=== PATIENT | female | born 1950 | race Hispanic/Latino ===

== ENCOUNTER 2020-06-24 15:13 | Outpatient (CLI) | payer MEDICARE, BC ==
[2020-06-24 15:51] LABS: Basophils % (Auto) 0.4 % (0.0-1.8); Eosinophils # (Auto) 0.2 K/mm3 (0.0-0.4); Eosinophils % (Auto) 1.9 % (0.0-4.3); Hematocrit 38.5 % (30.3-42.9); Hemoglobin 13.3 gm/dl (10.1-14.3); Lymphocytes # (Auto) 2.2 K/mm3 (1.2-5.4); Lymphocytes % (Auto) 27.1 % (13.4-35.0); Mean Corpuscular HGB Conc 35 % (30-34); Mean Corpuscular Volume 81 fl (79-97); Monocytes # (Auto) 0.8 K/mm3 (0.0-0.8); Monocytes % (Auto) 10.3 % (0.0-7.3); Platelet Count 259 K/mm3 (140-440); Red Blood Count 4.78 M/mm3 (3.65-5.03); Red Cell Distribution Width 13.8 % (13.2-15.2)
[2020-06-24 16:17] LABS: Alanine Aminotransferase 41 units/L (7-56); Albumin 3.8 g/dL (3.9-5); Blood Urea Nitrogen 18 mg/dL (7-17); Chol/HDL Ratio 3.58 %; HDL Cholesterol 34 mg/dL (40-59); Hemolysis Index 7; Iron 106 ug/dL (37-170); LDL Cholesterol,Direct 77 mg/dL (50-130); Total Iron Binding Capacity 292 mcg/dL (250-450)
[2020-06-24 16:19] LABS: BUN/Creatinine Ratio 26
== END 2020-06-24 15:14 | disposition home or self-care (01) ==
LOC: LAB 15:13
PROVIDERS: ATTEND Surgery
DX: E55.9 Vitamin D deficiency, unspecified (principal); E11.9 Type 2 diabetes mellitus without complications; K90.9 Intestinal malabsorption, unspecified; E66.01 Morbid (severe) obesity due to excess calories; K30 Functional dyspepsia
CPT/HCPCS: 36415; 80053; 80061; 82607; 82652; 82728; 83036; 83550; 84443; 85025; 85730

== ENCOUNTER 2020-09-30 10:27 | Outpatient (CLI) | payer MEDICARE ==
--- NOTE | 2020-09-30 11:46 | Fluoroscopy Report ---
Barium swallow Indication: MORBID OBESITY. Technique: Single and double contrast barium technique utilized to evaluate the esophagus. Findings: No mucosal irregularity, mass, mass effect, or critical stenosis. There were no abnormal tertiary c ontractions as seen with dysmotility. There was trace gastroesophageal reflux reaching the distal eso phagus. Impression: Trace gastroesophageal reflux. Otherwise unremarkable exam. Fluoroscopic time: 0.4 minutes Number of fluoroscopic images: 10 Signer Name: Dominick Carias MD Signed: 09/30/2020 11:41 AM Workstation Name: [id number]
== END 2020-09-30 10:28 | disposition home or self-care (01) ==
LOC: FLUORO 10:27
PROVIDERS: ATTEND Surgery
DX: E66.01 Morbid (severe) obesity due to excess calories (principal)
CPT/HCPCS: 74220

== ENCOUNTER 2020-11-01 08:00 | Inpatient (IN) | payer MEDICARE ==
[2020-11-05 10:27] LABS: Hematocrit 42.6 % (30.3-42.9); Hemoglobin 14.3 gm/dl (10.1-14.3); Mean Corpuscular HGB Conc 33 % (30-34); Mean Corpuscular Volume 82 fl (79-97); Platelet Count 268 K/mm3 (140-440); Red Blood Count 5.18 M/mm3 (3.65-5.03); Red Cell Distribution Width 13.9 % (13.2-15.2)
[2020-11-05 10:46] LABS: Alanine Aminotransferase 41 units/L (7-56); Blood Urea Nitrogen 19 mg/dL (7-17); Calcium 9.4 mg/dL (8.4-10.2); Hemolysis Index 0
[2020-11-05 10:47] LABS: BUN/Creatinine Ratio 27
--- NOTE | 2020-11-05 11:59 | Anesthesia Consultation ---
Anesthesia Consult and Med Hx Date of service: 11/08/20 - Airway Anesthetic Teeth Evaluation: Good ROM Head & Neck: Adequate Mental/Hyoid Distance: Adequate Mallampati Class: Class I Intubation Access Assessment: Good - Pulmonary Exam CTA: Yes - Cardiac Exam Cardiac Exam: RRR - Pre-Operative Health Status ASA Pre-Surgery Classification: ASA3 Proposed Anesthetic Plan: General - Pulmonary Hx Smoking: Yes (former smoker quit 25yrs) Hx Respiratory Symptoms: No (pulmonary fibrosis, no inhalers; pulm eval on chart) Home Oxygen Therapy: No Hx Sleep Apnea: Yes (occasional CPAP) - Cardiovascular System Hx Hypertension: Yes Hx Coronary Artery Disease: Yes (recent normal EF negative stress test) Hx Heart Attack/AMI: Yes (2005) Hx Percutaneous Transluminal Coronary Angioplasty (PTCA): Yes (stent x1 2005; ASA held >1 week) Hx Cardia Arrhythmia: No - Central Nervous System Hx Neuromuscular Disorder: No (RLS, peripheral neuropathy) CVA: No - Gastrointestinal Hx Gastroesophageal Reflux Disease: Yes - Endocrine Hx Renal Disease: No Hx Liver Disease: No Hx Insulin Dependent Diabetes: No Hx Non-Insulin Dependent Diabetes: No Hx Thyroid Disease: No - Other Systems Hx Obesity: Yes (BMI 40) - Additional Comments Anesthesia Medical History Comments: No hx anesthetic complications.
[2020-11-08] MEDS ORDERED: ENOXAPARIN 40 MG/0.4 ML INJ SUB-Q NR ×2 (06:00→09:00)
[2020-11-08] MEDS ORDERED: SCOPOLAMINE TRANSDERMAL PATCH 72 HR TD NR (06:00)
[2020-11-08] MEDS ORDERED: GABAPENTIN 500 MG/10 ML ORAL LIQD PO NR (06:00)
[2020-11-08] MEDS ORDERED: MIDAZOLAM 2 MG/2 ML INJ IV NR (06:00)
[2020-11-08] MEDS ORDERED: metroNIDAZOLE/NS 500 MG/100 ML 500 MG/100 ML BAG IV NR (06:00)
[2020-11-08] MEDS ORDERED: LACTATED RINGERS 1,000 ML IV SCH ×2 (06:00→12:30)
[2020-11-08] MEDS ORDERED: ACETAMINOPHEN IV 1,000 MG/100 ML BOTTLE IV ONE (06:12)
[2020-11-08] MEDS ORDERED: SCOPOLAMINE TRANSDERMAL PATCH 72 HR TD ONE (06:12)
[2020-11-08] MEDS ORDERED: BUPIVACAINE/PF (0.25%) 2.5 MG/ML 30 ML VIAL INFILTRATI ONE ×2 (07:18→08:53)
[2020-11-08] MEDS ORDERED: LIDOCAINE 1%/EPINEPHRINE 1:100,000 VIAL (20 ML) INFILTRATI ONE ×2 (07:19→08:54)
--- NOTE | 2020-11-08 07:25 | Anesthesia Day of Surgery ---
Anesthesia Day of Surgery - Day of Surgery Patient Examined: Yes Patient H&P Reviewed: Yes Patient is NPO: Yes Beta Blockers: Yes (metoprolol)
[2020-11-08] MEDS ORDERED: LIDOCAINE MPF (2%) 20 MG/1 ML VIAL 5 ML ONE (07:32)
[2020-11-08] MEDS ORDERED: ROCURONIUM 50 MG/5 ML INJ IV ONE (07:32)
[2020-11-08] MEDS ORDERED: KETAMINE/STERILE WATER 50 MG/ML SYRINGE ONE (07:32)
[2020-11-08] MEDS ORDERED: SODIUM CHLORIDE P/F VIAL 10 ML 10 ML ONE (07:34)
[2020-11-08] MEDS: ACETAMINOPHEN IV 1,000 MG/100 ML BOTTLE IV NR ×3 (07:35→20:55)
[2020-11-08] MEDS ORDERED: MAGNESIUM SULFATE 4 GM/100 ML BAG IV ONE (07:43)
[2020-11-08] MEDS ORDERED: ceFAZolin/Water 2 GM/20 ML 2 GM/20 ML SYRINGE IV ONE (07:52)
[2020-11-08] MEDS ORDERED: ONDANSETRON 4 MG/2 ML INJ IV PRN ×2 (08:00→13:00)
[2020-11-08] MEDS ORDERED: fentaNYL 100 MCG/2 ML INJ IV PRN (08:00)
[2020-11-08] MEDS ORDERED: ceFAZolin/STERILE WATER 2 GM/20 ML SYRINGE IV NR (08:00)
[2020-11-08] MEDS ORDERED: ePHEDrine SULFATE 50 MG/1 ML INJ ONE (08:51)
[2020-11-08] MEDS ORDERED: ENOXAPARIN 40 MG/0.4 ML INJ SUB-Q ONE (08:52)
[2020-11-08] MEDS ORDERED: SODIUM CHLORIDE 0.9% IRRIG SOLN 2000 ML IR ONE (08:54)
[2020-11-08] MEDS ORDERED: SODIUM CHLORIDE 0.9% IRR 1,500 ML BOTTLE IR ONE (08:55)
[2020-11-08] MEDS ORDERED: GLYCOPYRROLATE 0.4 MG/2 ML INJ ONE (11:00)
[2020-11-08] MEDS ORDERED: NEOSTIGMINE 10MG/10 ML INJ MDV ONE (11:00)
[2020-11-08] MEDS ORDERED: NON-FORMULARY EACH (Clonidine Hcl [Kapvay] 0.1 MG Tab.Er.12h) PO PRN (11:42)
--- NOTE | 2020-11-08 11:50 | Operative Report ---
Operative Report Operative Report: DATE OF PROCEDURE: 11/08/2020 SURGEON: Yuni Yu MD [employer] DEVELOPER: Yandy Antonio CSA, MD PREOPERATIVE DIAGNOSIS: Morbid obesity. POSTOPERATIVE DIAGNOSES: Morbid obesity PROCEDURES PERFORMED: 1. Laparoscopic gastric bypass. 2. Hiatal hernia repair 3. EGD. ANESTHESIA: General endotracheal tube intubation, TAP block SPECIMENS: None. ESTIMATED BLOOD LOSS: ~20ml FINDINGS: Normal anatomy. COMPLICATIONS: None. INDICATION: Ms. Gao is a 69-year-old female with history of morbid obesity, and obesity related co-morbidities. She presented today for gastric bypass. She signed informed consent and expressed understanding of risks and benefits. DESCRIPTION OF PROCEDURE: Patient was brought to the OR suite, laid in supine position. Bilateral lower extremity SCDs were placed. General anesthesia was induced via successful endotracheal tube intubation. Patient's abdomen was prepped and draped in sterile fashion. A veress needle was used to insuflate the abdomen to a pressure of 15mmHg via a stab incision in the left subcostal area Using Optiview technique, a 5-mm trocar was placed into the abdominal cavity under direct vision just superior to the umbilicus. There was noted to be no gross injury to any intraabdominal structures. 4 working trocars were placed under direct visualization, 12 mm in the right mid abdomen mid clavicular line and three 5-mm trocars in the right upper quadrant, epigastric, left upper quadrant. At this time, the ligament of Treitz identified and followed down approximately 60 cm and the jejunum was transected, after the omentum was split with the Harmonic scalpel . The distal segment of jejunum was then traced for approximately 80 cm and a stapled [id number] jejunojejunostomy was performed. The common enterotomy was closed with 2 firings of the endoscopic stapler. The mesenteric defect was closed with interrupted surgiac suture. This anastomosis was found to be patent without kink, obstruction or bleeding. At this time, the patient was placed in steep reverse Trendelenburg position. A liver retractor was placed through the epigastric port to elevate the left lateral lobe of the liver. A small gastric pouch was formed measuring about 4cm from the hiatus with serial firings of the blue staple load. There was noted to be a hiatal hernia defect through which the proximal gastric pouch was herniating above the level of the diaphragm. The left and right crura were skeletonized, and the sac attachments released until the gastric pouch rested in the abdominal cavity without tension for about 2cm. An anterior cruraplasty was performed with a U-stitch using surgidac suture. The Sabi limb was then brought in an antegastric antecolic fashion and secured with 2 stay sutures to the gastric pouch. After this, the enterotomies were made with Harmonic scalpel, and a [id number] stapled gastrojejunostomy was performed with a mechanical stapler. With a common anastamosis measuring about 20mm. After this, a 2-layer running closure using absorbable v-loc suture was done. The first being mucosal approximation. Prior to completion of the first layer, I passed an EGD scope beyond the anastomosis to act as a stent. The first layer was completed, the second was then performed. After this, the EGD was retracted slightly. A bowel clamp was placed on the proximal Sabi limb. The anastomosis was submerged under saline. Via intraluminal EGD insufflation, there was noted be no bubbles in the saline indicating an air tight anastomosis. There was noted to be no obstruction or bleeding intraluminally in the pouch or the anastomosis. At this time, the scope was removed. The saline was aspirated. Vistaseal was placed over the anastomosis. A TAP block using a total of 60ml 0.25% marcaine along bilateral midaxially lines from the subcostal margin to about the level of the umbilicus. All trocars were removed under direct visualization and the abdomen was then desufflated. The 12mm trocar was closed at the fascial layer with #1 PDS using a suture passer device prior to desfulation. The skin incisions were closed with 4-0 Monocryl followed by Dermabond dressings. Patient was awoken and taken to recovery in stable condition. All counts were correct.
--- OUTSIDE RECORDS SUMMARY | 2020-11-08 11:58 | External Medical Summary ---
:1950 Author Organization [facility], [facility] Address [address] [place] [address] Care Team Providers Name Role Phone Yuni Yu Unavailable [phone] PROBLEMS Type Condition ICD9-CM OIA87-AR Onset Condition W/U Status Risk SNOM ED Notes Code Code Dates Status Code Problem Dietary Z71.3 Active confirmed 126250652 counseling and surveillance Problem Unspecified J45.909 Active confirmed 0301300 0 asthma, uncomplicated Problem Gastro-esopha K21.9 Active confirmed 964387 005 geal reflux disease without esophagitis Problem Pulmonary J84.10 Active confirmed 48139127 fibrosis, unspecified Problem Sleep apnea, G47.30 Active confirmed 5947422 6 unspecified Problem Hyperlipidemi E78.5 Active confirmed 240397 04 a, unspecified Problem Morbid E66.01 Active confirmed 473889618 (severe) obesity due to excess calories Problem Essential I10 Active confirmed 05831296 (primary) hypertension ALLERGIES Allergen (clinical drug Drug/Non Drug Allergy Reaction Allergy Type Onset Date Status ingredient) documented on EMR Pollen Pollen Unknown Drug Allergy Active Bee Sting Unknown Drug Allergy Active copper Copper Unknown Drug Allergy Active Dust Mites Unknown Drug Allergy Active ENCOUNTERS from 1950 to 2020-11-08 Encounter Location Date Provider Diagnosis [facility] [address] [facility] [place], [place]hav[place] [address] IMMUNIZATIONS No Information SOCIAL HISTORY Sex Assigned At : Social History Observation Description Sex Assigned At Unknown REASON FOR REFERRAL from 1950 to 2020-11-08 Diagnosis 1 Morbid (severe) obesity due to excess calories (E66.01) Diagnosis 2 Hyperlipidemia, unspecified (E78.5) Diagnosis 3 Sleep apnea, unspecified (G4 7.30) Diagnosis 4 Unspecified asthma, uncompli cated (J45.909) Diagnosis 5 Gastro-esophageal reflux dis ease without esophagitis (K21.9) Diagnosis 6 Essential (primary) hyperten timothy (I10) Diagnosis 7 Dietary counseling and surve illance (Z71.3) Diagnosis 8 Pain in unspecified knee (M2 5.569) Diagnosis 9 Low back pain (M54.5) Referral Organization [facility] Referring Provider First Name Yuni Referring Provider Last Name Gigi Referring Provider Specialty Surgery Referred Provider [facility], - Referral Priority Routine VITAL SIGNS No information MEDICATIONS Medication SIG (Take, Route, Notes Start Date End Date Status Frequency, Duration) Hydrochlorothiazide-25 1 tablet in the Active mg 25 MG morning Orally Once a day for 30 day(s) Loratadine Active Atorvastatin Calcium 40 1 tablet Orally Once Active MG a day for 30 day(s) Flonase Active Alendronate Sodium 70 MG 1 tablet 30 minutes 1 weekly Active before the first food, beverage or medicine of the day with plain water Orally for 30 day(s) Aspir-81 Active Losartan Potassium 100 1 tablet Orally Once Active MG a day for 30 day(s) Ondansetron 4 MG 1-2 tablet on the Oct, Active tongue and allow to dissolve Orally q 4-6 hours prn nausea for 30 day(s) Potassium 10 meq prn Active Furosemide 40 MG 1 tablet Orally Once Active a day for 30 day(s) cloNIDine HCl 0.1 MG 1 tablet Orally Once prn Active a day for 30 day(s) Isosorbide Mononitrate 1 tablet in the Active ER 30 MG morning Orally Once a day for 30 day(s) NexIUM 40 MG 1 capsule Orally Once Oct, Active a day for 30 day(s) Pantoprazole Sodium 40 1 tablet Orally Once Active MG a day for 30 day(s) PROCEDURES No Information RESULTS No Results REASON FOR VISIT Gastric Bypass MEDICAL (GENERAL) HISTORY Type Description Date Medical History htn Medical History gerd Medical History hypercholerolemia Medical History bronchitis Medical History pulmonary fibrosis Medical History back pain Medical History sleep apnea Medical History irritable bowel syndrome Medical History hiatal hernia Medical History asthma Surgical History tubal ligation 1978 Surgical History lap wayne 2002 Surgical History L knee arthoscopic knee surgery 2003 Surgical History aortic stent 2006 Surgical History kidney stone ablation 2009 Surgical History L total knee replacement 2011 Hospitalization History as above Goals Section No Information Health Concerns No Information MEDICAL EQUIPMENT No Information MENTAL STATUS No Information FUNCTIONAL STATUS No Information ASSESSMENTS No Information PLAN OF TREATMENT Medication Medication Name Sig Start Date Stop Date NexIUM 40 MG 1 capsule Orally Once a day for 30 day(s) Oct Ondansetron 4 MG 1-2 tablet on the tongue and allow to Oct, 021 dissolve Orally q 4-6 hours prn nausea for 30 day(s) Referrals Referral Date Details Insurance Providers Payer Name Payer Address Payer Insured Patient Coverage Cover age End Phone Name Relationship to Start Date Law e Insured Medicare [address] [phone] [facility] [address] [id number] [facility] [phone] Agustín Gao self [facility] [phone] [id number]
[2020-11-08] MEDS ORDERED: ENOXAPARIN 40 MG/0.4 ML INJ SUB-Q SCH (12:00)
[2020-11-08] MEDS ORDERED: MORPHINE 2 MG/1 ML INJ IV PRN (12:30)
[2020-11-08] MEDS ORDERED: SIMETHICONE 80 MG CHEW TAB PO PRN (12:30)
[2020-11-08] MEDS ORDERED: METOCLOPRAMIDE 10 MG/2 ML INJ IV PRN (12:30)
[2020-11-08] MEDS ORDERED: KETOROLAC 30 MG/1 ML INJ ONE (12:33)
[2020-11-08] MEDS: KETOROLAC 30 MG/1 ML INJ IV SCH ×2 (12:40→20:54)
[2020-11-08] MEDS: PANTOPRAZOLE 40 MG INJ IV SCH (12:45)
[2020-11-08] MEDS ORDERED: HYDROcodone/Acetaminophen 7.5-325MG-15ML ORAL LIQD PO PRN (13:00)
[2020-11-08] MEDS ORDERED: hydrALAZINE 20 MG/1 ML INJ IV PRN (13:00)
[2020-11-08] MEDS ORDERED: HYDROmorphone 1 MG/1 ML INJ IV PRN (13:00)
[2020-11-08] MEDS ORDERED: cloNIDine 0.1 MG TAB PO PRN (14:00)
--- NOTE | 2020-11-08 15:03 | Post Anesthesia Evaluation ---
- Post Anesthesia Evaluation Patient Participated: Yes Airway Patent: Yes Stable Respiratory Function: Yes Nausea/Vomiting: No Temp > 96.8F: Yes Pain Manageable: Yes Adequeate Hydration: Yes Anesthesia Complications: No
[2020-11-08] MEDS: metroNIDAZOLE/NS 500 MG/100 ML 500 MG/100 ML BAG IV SCH ×2 (16:08→22:02)
[2020-11-08] MEDS: ceFAZolin/NS 1 GM/50 ML 1 GM/50 ML BAG IV SCH (16:09)
[2020-11-08] MEDS: ACETAMINOPHEN IV 1,000 MG/100 ML BOTTLE IV SCH ×2 (20:23→21:17)
[2020-11-09] MEDS: ceFAZolin/NS 1 GM/50 ML 1 GM/50 ML BAG IV SCH (00:11)
[2020-11-09] MEDS: KETOROLAC 30 MG/1 ML INJ IV SCH ×4 (00:16→19:13)
[2020-11-09] MEDS: ACETAMINOPHEN IV 1,000 MG/100 ML BOTTLE IV SCH ×2 (01:10→12:58)
[2020-11-09 06:16] LABS: Basophils % (Auto) 0.1 % (0.0-1.8); Hematocrit 37.2 % (30.3-42.9); Hemoglobin 12.5 gm/dl (10.1-14.3); Lymphocytes # (Auto) 0.8 K/mm3 (1.2-5.4); Lymphocytes % (Auto) 6.4 % (13.4-35.0); Mean Corpuscular HGB Conc 34 % (30-34); Mean Corpuscular Volume 83 fl (79-97); Monocytes # (Auto) 0.9 K/mm3 (0.0-0.8); Monocytes % (Auto) 7.3 % (0.0-7.3); Platelet Count 235 K/mm3 (140-440)
[2020-11-09] MEDS: metroNIDAZOLE/NS 500 MG/100 ML 500 MG/100 ML BAG IV SCH (06:29)
[2020-11-09 06:37] LABS: Alanine Aminotransferase 37 units/L (7-56); Albumin 3.6 g/dL (3.9-5); Blood Urea Nitrogen 11 mg/dL (7-17); Calcium 8.5 mg/dL (8.4-10.2); Hemolysis Index 0
[2020-11-09 06:39] LABS: BUN/Creatinine Ratio 16
--- NOTE | 2020-11-09 09:54 | Progress Note ---
Assessment and Plan Postop day #1 status post laparoscopic gastric bypass with hiatal hernia repair. Patient is afebrile and stable. Patient was started clear liquids today. Will like to serve patient for another day due to her significant comorbidities in cluding coronary artery disease, interstitial lung disease. We will continue frequent ambulation and incentive spirometry. If patient continues to do well will discharge tomorrow. Subjective Date of service: 11/09/20 Narrative: No acute events overnight. Patient complaining of some abdominal cramping otherwise pain is well controlled. Patient is ambulating well. Objective Vital Signs - 12hr 11/08/20 11/08/20 11/09/20 23:11 23:50 02:19 Temperature 98.8 F Pulse Rate 87 Respiratory 16 Rate Blood Pressure 115/55 O2 Sat by Pulse 76 L 85 92 Oximetry 11/09/20 11/09/20 11/09/20 03:16 09:27 09:29 Temperature 98.8 F 97.6 F Pulse Rate 92 H 75 Respiratory 18 18 Rate Blood Pressure 127/56 138/56 138/56 O2 Sat by Pulse 90 83 L Oximetry 11/09/20 09:41 Temperature Pulse Rate Respiratory Rate Blood Pressure O2 Sat by Pulse 91 Oximetry - General physical appearance well developed, no distress, no pain - Respiratory normal expansion, normal respiratory effort - Abdomen soft, other (Abdominal binder in place with incisions clean dry and intact. Appropriately tender to palpation.) - Labs 11/09/20 04:53 11/09/20 04:53 Diabetes panel 11/09/20 Range/Units 04:53 Sodium 141 (137-145) mmol/L Potassium 4.4 (3.6-5.0) mmol/L Chloride 105.1 (98-107) mmol/L Carbon Dioxide 24 (22-30) mmol/L BUN 11 (7-17) mg/dL Creatinine 0.7 (0.6-1.2) mg/dL Glucose 113 H (65-100) mg/dL Calcium 8.5 (8.4-10.2) mg/dL AST 36 (5-40) units/L ALT 37 (7-56) units/L Alkaline Phosphatase 68 (35-129) units/L Total Protein 6.9 (6.3-8.2) g/dL Albumin 3.6 L (3.9-5) g/dL Calcium panel 11/09/20 Range/Units 04:53 Calcium 8.5 (8.4-10.2) mg/dL Albumin 3.6 L (3.9-5) g/dL Pituitary panel 11/09/20 Range/Units 04:53 Sodium 141 (137-145) mmol/L Potassium 4.4 (3.6-5.0) mmol/L Chloride 105.1 (98-107) mmol/L Carbon Dioxide 24 (22-30) mmol/L BUN 11 (7-17) mg/dL Creatinine 0.7 (0.6-1.2) mg/dL Glucose 113 H (65-100) mg/dL Calcium 8.5 (8.4-10.2) mg/dL Adrenal panel 11/09/20 Range/Units 04:53 Sodium 141 (137-145) mmol/L Potassium 4.4 (3.6-5.0) mmol/L Chloride 105.1 (98-107) mmol/L Carbon Dioxide 24 (22-30) mmol/L BUN 11 (7-17) mg/dL Creatinine 0.7 (0.6-1.2) mg/dL Glucose 113 H (65-100) mg/dL Calcium 8.5 (8.4-10.2) mg/dL Total Bilirubin 0.80 (0.1-1.2) mg/dL AST 36 (5-40) units/L ALT 37 (7-56) units/L Alkaline Phosphatase 68 (35-129) units/L Total Protein 6.9 (6.3-8.2) g/dL Albumin 3.6 L (3.9-5) g/dL
[2020-11-09] MEDS ORDERED: NON-FORMULARY EACH (Losartan [Cozaar] 100 MG Tablet) PO SCH (10:00)
[2020-11-09] MEDS ORDERED: METOPROLOL TARTRATE 50 MG TAB PO SCH (10:00)
[2020-11-09] MEDS ORDERED: SCOPOLAMINE TRANSDERMAL PATCH 72 HR TD SCH (10:00)
[2020-11-09] MEDS: PANTOPRAZOLE 40 MG INJ IV SCH (12:23)
[2020-11-09] MEDS: ENOXAPARIN 40 MG/0.4 ML INJ SUB-Q SCH (12:23)
[2020-11-09] MEDS: METOPROLOL SUCCINATE XL 50 MG TAB PO SCH (12:29)
[2020-11-09] MEDS: LOSARTAN 50 MG TAB PO SCH (12:30)
[2020-11-09] MEDS: hydroCHLOROthiazide 25 MG TAB PO SCH (12:31)
[2020-11-10] MEDS: KETOROLAC 30 MG/1 ML INJ IV SCH ×2 (02:22→06:51)
[2020-11-10 06:13] LABS: Basophils % (Auto) 0.4 % (0.0-1.8); Eosinophils # (Auto) 0.2 K/mm3 (0.0-0.4); Eosinophils % (Auto) 1.8 % (0.0-4.3); Hematocrit 35.1 % (30.3-42.9); Hemoglobin 11.7 gm/dl (10.1-14.3); Lymphocytes # (Auto) 1.7 K/mm3 (1.2-5.4); Mean Corpuscular HGB Conc 33 % (30-34); Mean Corpuscular Volume 82 fl (79-97); Monocytes # (Auto) 0.8 K/mm3 (0.0-0.8); Platelet Count 214 K/mm3 (140-440); Red Blood Count 4.27 M/mm3 (3.65-5.03)
[2020-11-10 06:35] LABS: Alanine Aminotransferase 24 units/L (7-56); Albumin 3.3 g/dL (3.9-5); Blood Urea Nitrogen 12 mg/dL (7-17); Calcium 8.6 mg/dL (8.4-10.2); Hemolysis Index 2
[2020-11-10 06:40] LABS: BUN/Creatinine Ratio 17
[2020-11-10 08:06] VITALS: BP 110/42
[2020-11-10] MEDS: METOPROLOL SUCCINATE XL 50 MG TAB PO SCH (09:09)
[2020-11-10] MEDS: ENOXAPARIN 40 MG/0.4 ML INJ SUB-Q SCH (09:10)
[2020-11-10] MEDS: LOSARTAN 50 MG TAB PO SCH (09:10)
[2020-11-10] MEDS: hydroCHLOROthiazide 25 MG TAB PO SCH (09:10)
[2020-11-10] MEDS: PANTOPRAZOLE 40 MG INJ IV SCH (09:10)
--- NOTE | 2020-11-10 10:17 | Discharge Summary ---
Providers - Providers Date of Admission: 11/08/20 05:55 Date of discharge: 11/10/20 Attending physician: BRAYAN OROZCO MD 11/08/20 11:37 Physical Therapy Evaluation and Treat [CONS] Routine Comment: Reason For Exam: post op bariatric surgery Primary care physician: SARAH GARVEY MD Hospitalization Reason for admission: s/p bariatric surgery Condition: Good Procedures: lap gastric bypass with hiatal hernia repair Hospital course: Patient had an uncomplicated course status post laparoscopic gastric bypass with hiatal hernia. Patient progressed well with adequate pain control. She was ambulating well with complaint of difficulty getting in and out of the bed which caused her some abdominal discomfort. Patient denied any nausea or vomiting. Patient was tolerating clear liquids without difficulty. Patient's laboratory and vital signs were within appropriate limits. Patient was discharged on postoperative day 2 showing no clinical signs of leak or bleeding. Disposition: 01 HOME / SELF CARE / HOMELESS Final Discharge Diagnosis (Prints w/discharge instructions): morbid obesity, pulmonary fibrosis, MIRANDA, htn, hyperlipidemia, heart disease Core Measure Documentation - Palliative Care Palliative Care/ Comfort Measures: Not Applicable - Core Measures Any of the following diagnoses?: none Exam - Constitutional Vitals: Temp Pulse Resp BP Pulse Ox 98.1 F 78 18 110/42 91 11/10/20 08:00 11/10/20 09:09 11/10/20 08:00 11/10/20 08:00 11/10/20 08:00 General appearance: Present: no acute distress, obese - Respiratory Respiratory effort: normal - Cardiovascular Heart Sounds: Present: S1 & S2 - Extremities Extremities: no ischemia - Abdominal General gastrointestinal: Present: other (incisions c/d/i, appropriately tender to palpation) Plan Activity: advance as tolerated Diet: clear liquids Wound: open to air, keep clean and dry Follow up with: SARAH GARVEY MD [Primary Care Provider] - 7 Days
== END 2020-11-10 14:06 | disposition home or self-care (01) | DRG 621 ==
LOC: EDSTATUS 08:00 → 3A 11-08 05:55 → 4A 11-08 11:46
PROVIDERS: ADMIT Surgery; ATTEND Surgery
PROC: 0D164ZA Bypass Stomach to Jejunum, Percutaneous Endoscopic Approach (ICD-10-PCS; principal; 2020-11-08)
PROC: 0BQT4ZZ Repair Diaphragm, Percutaneous Endoscopic Approach (ICD-10-PCS; 2020-11-08)
PROC: 0DJ08ZZ Inspection of Upper Intestinal Tract, Via Natural or Artificial Opening Endoscopic (ICD-10-PCS; 2020-11-08)
DX: E66.01 Morbid (severe) obesity due to excess calories (principal); Z20.822 Contact with and (suspected) exposure to COVID-19; Z68.41 Body mass index [BMI] 40.0-44.9, adult; Z91.048 Other nonmedicinal substance allergy status; G47.33 Obstructive sleep apnea (adult) (pediatric); J84.10 Pulmonary fibrosis, unspecified; E78.5 Hyperlipidemia, unspecified; I11.9 Hypertensive heart disease without heart failure; K44.9 Diaphragmatic hernia without obstruction or gangrene
CPT/HCPCS: 36415; 80053; 85025; 85027; 94660; 94760; G0378; A4217; C9113; J0131; J0690; J1650; J1885; J2405; J2704; J2710; J3475; J3490; J7120; U0003

== ENCOUNTER 2021-08-23 13:54 | Outpatient (CLI) | payer MEDICARE, BC ==
[2021-08-23 14:36] LABS: Basophils # (Auto) 0.1 K/mm3 (0.0-0.1); Basophils % (Auto) 1.2 % (0.0-1.8); Eosinophils # (Auto) 0.3 K/mm3 (0.0-0.4); Eosinophils % (Auto) 5.6 % (0.0-4.3); Hematocrit 34.4 % (30.3-42.9); Hemoglobin 11.3 gm/dl (10.1-14.3); Lymphocytes # (Auto) 1.7 K/mm3 (1.2-5.4); Lymphocytes % (Auto) 29.3 % (13.4-35.0); Mean Corpuscular HGB Conc 33 % (30-34); Mean Corpuscular Volume 82 fl (79-97); Monocytes # (Auto) 0.4 K/mm3 (0.0-0.8); Monocytes % (Auto) 6.8 % (0.0-7.3); Platelet Count 201 K/mm3 (140-440); Red Blood Count 4.18 M/mm3 (3.65-5.03); Red Cell Distribution Width 14.4 % (13.2-15.2)
[2021-08-23 15:07] LABS: % Iron Saturation 30.45 %; Alanine Aminotransferase 18 units/L (7-56); Albumin 3.9 g/dL (3.9-5); Blood Urea Nitrogen 11 mg/dL (7-17); Chol/HDL Ratio 2.13 %; HDL Cholesterol 51 mg/dL (40-59); Hemolysis Index 5; Iron 67 ug/dL (37-170); LDL Cholesterol,Direct 53 mg/dL (50-130); Total Iron Binding Capacity 220 mcg/dL (250-450)
[2021-08-23 15:10] LABS: BUN/Creatinine Ratio 16
== END 2021-08-23 13:55 | disposition home or self-care (01) ==
LOC: LAB 13:54
PROVIDERS: ATTEND Surgery
DX: Z13.21 Encounter for screening for nutritional disorder (principal); Z13.29 Encounter for screening for other suspected endocrine disorder; Z00.00 Encounter for general adult medical examination without abnormal findings; E11.9 Type 2 diabetes mellitus without complications; K90.9 Intestinal malabsorption, unspecified; E55.9 Vitamin D deficiency, unspecified; Z98.84 Bariatric surgery status; K30 Functional dyspepsia
CPT/HCPCS: 36415; 80053; 80061; 82607; 82728; 83036; 83550; 83970; 84443; 85025